=== PATIENT | male | born 1935 | race Caucasian/White ===

== ENCOUNTER 2020-01-11 09:06 | Emergency (ER) | payer MEDICARE, OTHER ==
--- NOTE | 2020-01-11 09:19 | ED.PDOC ---
History of Present Illness - General Chief Complaint: GI Problem Stated Complaint: feeding tube coming out Time Seen by Provider: 01/11/20 09:18 Source: patient, EMS, half-way records - History of Present Illness Initial Comments: 84-year-old male with past medical history of Parkinson's dementia, G-tube dependent, history of bowel obstruction who is brought in by EMS from [facility] for chief complaint of G-tube displacement. Per [facility] the G-tube was placed sometime between September and December but no exact date is given and I see no procedure note in the chart. Apparently there was an issue with the G-tube last week and the patient was sent to the ED for evaluation and it was confirmed to be in good position. However this morning during rounds apparently it was noted to come out even further in the interval can now be seen. There is also been scant dark drainage reported from around the G-tube site. Given the patient's dementia, history is quite limited. He is unsure when the G-tube was placed. He complains only of some vague mild abdominal discomfort to the left lower quadrant as well as some nausea without emesis. He states however he is always nauseous. Denies any other systemic symptoms. Denies chest pain, dyspnea, fevers, chills, leg swelling. Allergies/Adverse Reactions: Allergies NO KNOWN ALLERGY Allergy (Verified 01/11/20 09:19) Review of Systems - Review of Systems Review of Systems: 01/11/20 09:33 as per HPI All other Systems: Reviewed and Negative Past Medical History (General) - Patient Medical History Hx Hypertension: Yes - Vaccination History Hx Influenza Vaccination: Yes Hx Pneumococcal Vaccination: Yes - Activities of Daily Living Residential/Assisted Living (if applicable):: [facility] - Female History Patient is a Female of Child Bearing Age (10 -59 yrs old): No Family Medical History - Family History Mother Family History: Unknown Physical Exam - Physical Exam General Appearance: Alert, Comfortable, No apparent distress Eye Exam: bilateral normal Ears, Nose, Throat: hearing grossly normal, normal ENT inspection, normal pharynx Neck: non-tender, full range of motion, normal inspection Respiratory: lungs clear, normal breath sounds, no respiratory distress, no accessory muscle use Cardiovascular/Chest: normal peripheral pulses, regular rate, rhythm, no edema, no gallop, no JVD, no murmur Peripheral Pulses: radial,right: 2+, radial,left: 2+ Gastrointestinal/Abdominal: normal bowel sounds, non tender, soft, no organomegaly, other - G-tube in place to left upper abdomen, the inner bulb is seen near the skin site and is not able to easily be advanced, no drainage noted, moderate erythema of the skin around the g-tube site, white drainaged noted in the tube itself Back Exam: normal inspection, no CVA tenderness, no vertebral tenderness Extremity: non-tender, normal inspection, no pedal edema, no calf tenderness, normal capillary refill 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 Consider also: G-tube was placed in the last month. Consider also bowel obstruction, gastric/bowel perforation, acute pancreatitis, gastroenteritis, other -Patient stable, no acute distress -Obtain blood work, x-ray of abdomen, urinalysis, will attempt to place a new catheter at the site of the gastrostomy in order to maintain the patency of the site -Attempt to find out exact date of the surgery, which will help to understand risk of closure of the site if the tube is dislodged 01/11/20 11:29 -The patient's G-tube fell out while Gastrografin was attempted to be pushed through it. I attempted to replace the G-tube with another 20 Maltese G-tube here in the ED but it would not easily pass. I then also tried an 18 Maltese which would not pass. I then tried a 16 Maltese Rene catheter and then a 12 Maltese Rene catheter and I could not easily advance either of those either. -The nurses discovered that the patient was seen and admitted last month to [facility] in [place] where he was treated for bowel obstruction and the G-tube was placed on 12/09/2019. I am concerned for possible tract closure. Consider also bowel perforation. I have placed a consult to general surgery, awaiting callback. 01/11/20 14:23 -Dr. Dela Cruz evaluated the patient and was also unable to replace the g-tube at bedside. He reports that likely the tract is very narrow or closed. He is not concerned about bowel perforation as this is very unlikely more than 30 days postoperatively. Further the patient clinically appears very well without any evidence of acute illness, abdominal pain, sepsis, etc. 01/11/20 16:24 -Spoke with [place] Dr. Davenport who states that the patient is totally G-tube dependent for all p.o. intake and p.o. medications. -Discussed patient with Mercedes Rollins, hospitalist, who states that patient does not meet inpatient criteria for admission. However, she has arranged for his surgery tomorrow morning with the surgical team. Plan is for patient to be discharged back to [facility] and to be n.p.o. this evening and tomorrow morning in preparation for his surgery. He is to be brought back to the hospital tomorrow morning for outpatient elective surgery for replacement of the PEG tube. -I discussed all of the above in full with the patient's daughter, Shannen, who is in agreement with the plan. Khai Jaramillo MD Billing #[id number] Laboratory Results - last 24 hr 01/11/20 01/11/20 01/11/20 09:55 09:55 12:35 WBC 8.8 RBC 4.12 L Hgb 13.4 L Hct 38.5 L MCV 93.4 MCH 32.5 H MCHC 34.7 RDW 15.7 H Plt Count 231 MPV 7.9 Absolute Neuts (auto) 6.80 Absolute Lymphs (auto) 1.20 Absolute Monos (auto) 0.50 Absolute Eos (auto) 0.20 Absolute Basos (auto) 0.10 Neutrophils % 77.4 Lymphocytes % 13.8 L Monocytes % 5.9 Eosinophils % 2.3 Basophils % 0.6 Sodium 139 Potassium 3.9 Chloride 101 Carbon Dioxide 28 Anion Gap 13.9 BUN 19 H Creatinine 0.64 BUN/Creatinine Ratio 29.7 H Random Glucose 113 H Serum Osmolality 280.6 Calcium 8.7 Total Bilirubin 0.4 Direct Bilirubin 0.1 Indirect Bilirubin 0.3 AST 24 ALT 16 Alkaline Phosphatase 65 Serum Total Protein 7.0 Albumin 3.4 Amylase 42 Lipase 50 Urine Color Yellow Urine Appearance Clear Urine pH 7.0 Ur Specific [place] 1.025 Urine Protein Negative Urine Glucose (UA) Negative Urine Ketones Negative Urine Blood Small H Urine Nitrite Negative Urine Bilirubin Negative Urine Urobilinogen 1.0 Ur Leukocyte Esterase Negative Urine RBC 5-10 H Urine WBC 0-1 Ur Epithelial Cells 0 Amorphous Sediment 1+ Urine Bacteria 0 Urine Mucus Moderate - EKG/XRAY/CT XRAY: abdomen - nonspecific nonobstructive bowel gas pattern Departure - Departure Clinical Impression: Gastrostomy tube dysfunction Time of Disposition: 16:20 Disposition: Discharge to SNF Condition: Good Departure Forms: ED Discharge - Pt. Copy, Patient Portal Self Enrollment Instructions: Ostomy Surgery (DC) Diet: other - NPO for surgery tomorrow morning Activity: increase activity as tolerated Referrals: PURVI DAVENPORT [Primary Care Provider] - 1-2 Weeks Additional Instructions: The patient is to return tomorrow morning for outpatient PEG tube placement surgery. Keep the ostomy site clean and dry with a clean dressing until the surgery tomorrow morning. The patient is to remain n.p.o. tonight and tomorrow morning in preparation for his surgical procedure.
[2020-01-11] MEDS ORDERED: ONDANSETRON INJ 4 MG/2 ML VIAL IV ONE (09:30)
[2020-01-11] MEDS ORDERED: SODIUM CHLORIDE 0.9% (FLUSH) 10 ML SYG IV PRN (09:30)
--- NOTE | 2020-01-11 09:54 | RAD ---
EXAM DESCRIPTION: Abdomen 1 View CLINICAL HISTORY: 84 years Male, abdominal discomfort, g-tube issue COMPARISON: None. TECHNIQUE: Single view radiograph of the abdomen. IMPRESSION: Gastrostomy in place overlying the gastric lumen near the greater curvature of the stomach. Nondilated bowel gas pattern. No pathologic calcification overlying the renal shadows or expected course of the ureters. Scattered surgical clips throughout the abdomen. Lumbar spondylosis. Moderate arthrosis of the hips. Electronically signed by: Danial Hickey MD 01/11/2020 9:52 AM CDT
[2020-01-11 15:32] VITALS: TEMP 97.4
[2020-01-11 19:09] VITALS: BP 136/79; O2SAT 95
== END 2020-01-11 18:15 ==
LOC: ER 09:06
DX: K94.23 Gastrostomy malfunction (principal); Y83.8 Other surgical procedures as the cause of abnormal reaction of the patient, or of later complication, without mention of misadventure at the time of the procedure; I10 Essential (primary) hypertension; G20 Parkinson's disease; F02.80 Dementia in other diseases classified elsewhere, unspecified severity, without behavioral disturbance, psychotic disturbance, mood disturbance, and anxiety
CPT/HCPCS: 36415; 74018; 80048; 80076; 81001; 82150; 83690; 85025; J2405

== ENCOUNTER 2020-01-12 11:30 | Day surgery (SDC) | payer MEDICARE, OTHER ==
[~2020-01-12 11:30] MED LIST: LIDOCAINE 1% 10 ML VIAL INJ ONE; PROPOFOL 200 MG/20 ML VIAL IV ONE
[2020-01-12] MEDS ORDERED: SODIUM CHL 0.9% 100ML MINI-BAG 100 ML IVPB ONE (12:03)
[2020-01-12] MEDS ORDERED: LACTATED RINGERS 1,000 ML ONE (12:14)
--- NOTE | 2020-01-12 15:02 | OP ---
DATE OF PROCEDURE: 01/12/20 PREOPERATIVE DIAGNOSIS: 1. Poor p.o. intake with dislodged PEG tube. POSTOPERATIVE DIAGNOSIS: 1. Poor p.o. intake with dislodged PEG tube. PROCEDURE: 1. Placement of PEG tube. SURGEON: Giovanny Dela Cruz MD ANESTHESIA: General. COMPLICATIONS: None. PLAN: Return to alf. INDICATION: This is an 84-year-old man who for at least one month now has had a PEG tube. He was hospitalized two months ago. He came to the Emergency Department with a dislodged PEG tube. He does have dementia and poor p.o. intake. He is at a local alf. We could not replace the PEG in the Emergency Department due to a stricture of the hole, so we decided to do a formal PEG. The tube is already out. PROCEDURE: The patient was brought to the Endoscopy Suite in the supine position. General anesthesia was induced. Bite block was in place. The endoscope was inserted without difficulty. We then palpated the abdominal wall and identified the area where the previous tube had been placed. It was a very tiny hole and seems to be healing well. It goes along with the external hole that exists that is not grossly infected. We considered using this and when I palpated other areas, this was the most generous area to directly place the tube and the most appropriate place to go in. We inserted the angiocatheter there and placed our snare. The suture came through. It was withdrawn through the mouth and attached to the tube. The tube was then gently pulled back down the esophagus without any resistance and into the stomach up to about 4.5 cm. The endoscope was the re-inserted to confirm good position and no evidence of problems and there was not. The skin stay device was then placed over the tube after it was trimmed to about 1 foot. It was at about 4.5 cm at the skin, so that is was at about 5 cm or so and the clamp as well as the stopcock device was placed. He tolerated the procedure well and was then taken to Recovery where he can be discharged back to the alf. The feeding tube can be utilized. #[id number] cc: Jt Palomino MD [facility]
[2020-01-12 15:21] VITALS: BP 156/79; TEMP 98.6; O2SAT 99
== END 2020-01-12 15:30 ==
LOC: AMB 11:30
PROVIDERS: ATTEND Surgery
DX: Z43.1 Encounter for attention to gastrostomy (principal); I10 Essential (primary) hypertension; I25.10 Atherosclerotic heart disease of native coronary artery without angina pectoris; F03.90 Unspecified dementia, unspecified severity, without behavioral disturbance, psychotic disturbance, mood disturbance, and anxiety; Z98.84 Bariatric surgery status; Z79.82 Long term (current) use of aspirin; Z79.899 Other long term (current) drug therapy
CPT/HCPCS: 00731; 43246; J0694; J3490; J7050; J7120